=== PATIENT | female | born 1935 | race Caucasian/White ===

== ENCOUNTER 2023-09-28 14:40 | Emergency (ER) | payer MEDICARE, BC ==
[2023-09-28 15:48] LABS: BASOPHILS PERCENT AUTO 0.2 % (0.1-1.3); EOSINOPHILS ABSOLUTE AUTO 0.18 K/uL (0.00-0.40); EOSINOPHILS PERCENT AUTO 1.7 % (0.0-5.4); HEMATOCRIT 25.4 % (34.3-46.0); HEMOGLOBIN 8.4 g/dL (11.2-15.5); IMMATURE GRAN ABSOLUTE AUTO 0.05 K/uL (0.00-0.23); IMMATURE GRAN PERCENT AUTO 0.5 % (0.0-0.7); LYMPHOCYTES ABSOLUTE AUTO 1.14 K/uL (0.8-3.3); LYMPHOCYTES PERCENT AUTO 10.8 % (11.4-47.7); MEAN CORPUSCULAR HEMOGLOBIN 28.9 pg (31.6-35.5); MEAN CORPUSCULAR HGB CONC 33.1 g/dL (31.6-35.5); MEAN CORPUSCULAR VOLUME 87.3 fL (81.4-99.0); MONOCYTES ABSOLUTE AUTO 1.06 K/uL (0.20-0.90); MONOCYTES PERCENT AUTO 10.1 % (3.3-12.6); NEUTROPHILS ABSOLUTE AUTO 8.09 K/uL (1.0-7.6); NEUTROPHILS PERCENT AUTO 76.7 % (40.0-78.1); PLATELET COUNT,PLT 374 K/uL (130-375); RED BLOOD CELL COUNT 2.91 M/uL (3.77-5.24); WHITE BLOOD CELL COUNT,WBC 10.5 K/uL (3.2-11.0)
[2023-09-28 15:53] LABS: BASOPHILS ABSOLUTE AUTO 0.02 K/uL (0.00-0.10)
[2023-09-28 16:14] LABS: PROTHROMBIN TIME 10.3 sec (9.2-10.6); PTT,PARTIAL THROMBOPLSTIN TIME 25.3 sec (21.8-27.3)
[2023-09-28 16:21] LABS: ANION GAP 12.4 mmol/L (5.0-14.0); CALCIUM 8.6 mg/dL (8.5-10.1); CREATININE 1.2 mg/dL (0.6-1.0); EST CRCL DRUG DOSING (CG) 23.28 mL/min; MAGNESIUM 1.4 mg/dL (1.8-2.4); POTASSIUM,K 4.4 mmol/L (3.6-5.2); TROPONIN I HIGH SENSITIVITY 3124.9 pg/mL (<=60.3)
[2023-09-28] MEDS ORDERED: Heparin Sodium/D5W 25,000 UNITS/500 ML BAG IV SCH (16:30)
[2023-09-28] MEDS: Aspirin 81 MG Tab.Chew PO ONE (16:53)
[2023-09-28] MEDS: Ticagrelor 90 MG Tab PO ONE (16:53)
[2023-09-28] MEDS: Heparin Sodium 5,000 Units/ML Vial IVPUSH ONE (16:54)
[2023-09-28] MEDS: Heparin Sodium/D5W 25,000 UNITS/500 ML BAG IV SCH (16:56)
[2023-09-28] MEDS: Furosemide 20 MG/2 ML VIAL IVPUSH ONE (17:00)
== END 2023-09-28 18:50 ==
LOC: JP.ED 14:40
DX: I21.4 Non-ST elevation (NSTEMI) myocardial infarction (principal); E11.9 Type 2 diabetes mellitus without complications; E03.9 Hypothyroidism, unspecified; E78.00 Pure hypercholesterolemia, unspecified; I11.0 Hypertensive heart disease with heart failure; I50.9 Heart failure, unspecified; Z79.84 Long term (current) use of oral hypoglycemic drugs; Z79.899 Other long term (current) drug therapy
CPT/HCPCS: 36415; 71046; 80048; 83735; 83880; 84484; 85025; 85610; 85730; 93010; 96365; 96366; 96375; 99285; A9270; J1644; J1940

== ENCOUNTER 2023-10-04 15:15 | Observation (INO) | payer MEDICARE, BC ==
[2023-10-04 16:09] LABS: BASOPHILS PERCENT AUTO 0.2 % (0.1-1.3); EOSINOPHILS ABSOLUTE AUTO 0.21 K/uL (0.00-0.40); HEMATOCRIT 20.2 % (34.3-46.0); IMMATURE GRAN ABSOLUTE AUTO 0.05 K/uL (0.00-0.23); IMMATURE GRAN PERCENT AUTO 0.5 % (0.0-0.7); LYMPHOCYTES ABSOLUTE AUTO 1.31 K/uL (0.8-3.3); LYMPHOCYTES PERCENT AUTO 12.2 % (11.4-47.7); MEAN CORPUSCULAR HEMOGLOBIN 29.3 pg (31.6-35.5); MEAN CORPUSCULAR HGB CONC 32.7 g/dL (31.6-35.5); MEAN CORPUSCULAR VOLUME 89.8 fL (81.4-99.0); MONOCYTES ABSOLUTE AUTO 1.19 K/uL (0.20-0.90); MONOCYTES PERCENT AUTO 11.1 % (3.3-12.6); NEUTROPHILS ABSOLUTE AUTO 7.95 K/uL (1.0-7.6); PLATELET COUNT,PLT 368 K/uL (130-375); RED BLOOD CELL COUNT 2.25 M/uL (3.77-5.24); WHITE BLOOD CELL COUNT,WBC 10.7 K/uL (3.2-11.0)
[2023-10-04 16:13] LABS: BASOPHILS ABSOLUTE AUTO 0.02 K/uL (0.00-0.10); HEMOGLOBIN 6.6 g/dL (11.2-15.5)
[2023-10-04 16:27] LABS: BILIRUBIN,URINE NEGATIVE (NEGATIVE); COLOR,URINE YELLOW (YELLOW); GLUCOSE,URINE NEGATIVE (NEGATIVE); KETONES,URINE NEGATIVE (NEGATIVE); LEUKOCYTE ESTERASE,URINE MODERATE (NEGATIVE); NITRITE,URINE NEGATIVE (NEGATIVE); OCCULT BLOOD,URINE NEGATIVE (NEGATIVE); PH,URINE 5.5 (5.0-8.0); PROTEIN,URINE 30 mg/dL (NEGATIVE); UROBILINOGEN,URINE 0.2 EU/dL (0.2-1.0)
[2023-10-04 16:33] LABS: A/G RATIO 0.8 (1.2-2.2); ALANINE AMINOTRANSFERASE,ALT 21 U/L (12-78); ALBUMIN 2.8 g/dL (3.4-5.0); ALKALINE PHOSPHATASE 72 U/L (46-116); ASPARTATE AMNIOTRANSFERASE,AST 26 U/L (15-37); BILIRUBIN TOTAL 0.3 mg/dL (0.2-1.0); BLOOD UREA NITROGEN,BUN 30 mg/dL (7-18); CALCIUM 8.7 mg/dL (8.5-10.1); CARBON DIOXIDE,CO2 20 mmol/L (21-32); CHLORIDE,CL 96 mmol/L (100-108); CREATININE 1.4 mg/dL (0.6-1.0); EST CRCL DRUG DOSING (CG) 19.95 mL/min; ESTIMATED GFR 36 mL/min (>60); GLUCOSE RANDOM 131 mg/dL (74-106); POTASSIUM,K 4.9 mmol/L (3.6-5.2); PROTEIN TOTAL,TP 6.5 g/dL (6.4-8.2); PROTHROMBIN TIME 10.2 sec (9.2-10.6); PTT,PARTIAL THROMBOPLSTIN TIME 23.3 sec (21.8-27.3); SODIUM,NA 128 mmol/L (140-148)
[2023-10-04 16:35] LABS: ANION GAP 16.9 mmol/L (5.0-14.0)
[2023-10-04 16:38] LABS: AMORPHOUS SEDIMENT,URINE NOT SEEN; APPEARANCE,URINE SLIGHTLY CLOUDY (CLEAR); BACTERIA,URINE MODERATE; EPITHELIAL CELLS,URINE FEW; MUCUS,URINE FEW; RBC,URINE 0-5 (0-5); WBC,URINE 20-30 (0-5)
[2023-10-04] MEDS: Sodium Chloride 0.9% 1,000 ML IV SCH (16:40)
[2023-10-04] MEDS: Sodium Chloride 0.9% 10 ML Syringe FLUSH PRN (16:56)
[2023-10-04 18:17] LABS: CORONAVIRUS COVID-19 NAA NEGATIVE (NEGATIVE); INFLUENZA A NAA NEGATIVE (NEGATIVE); INFLUENZA B NAA NEGATIVE (NEGATIVE); RESPIRATORY SYNCYTIAL VIR NAA NEGATIVE (NEGATIVE)
[2023-10-04] MEDS ORDERED: Acetaminophen 325 MG Tab PO PRN (19:18)
[2023-10-04] MEDS ORDERED: Gabapentin 100 MG Cap PO PRN (19:18)
[2023-10-04] MEDS ORDERED: oxyCODONE 5 MG Tab PO PRN (19:18)
[2023-10-04] MEDS ORDERED: Docusate Sodium 100 MG Cap PO PRN (19:18)
[2023-10-04] MEDS ORDERED: Ondansetron 4 MG Tab.DIS PO PRN (19:18)
[2023-10-04] MEDS ORDERED: Ondansetron 4 MG/2 ML SDV IV PRN (19:18)
[2023-10-04] MEDS: cefTRIAXone 1 GM in Sodium Chloride 0.9% 50 ML IV SCH (19:50)
[2023-10-04] MEDS: Sodium Chloride 0.9% 50 ML ONE (19:57)
[2023-10-04] MEDS ORDERED: Rosuvastatin 10 MG Tab PO SCH (21:00)
[2023-10-04] MEDS: diphenhydrAMINE 25 MG Cap PO SCH (22:33)
[2023-10-04] MEDS: Gabapentin 100 MG Cap PO SCH (22:34)
[2023-10-04] MEDS: Rosuvastatin 10 MG Tab PO SCH (22:37)
[2023-10-05 06:09] LABS: BASOPHILS ABSOLUTE AUTO 0.03 K/uL (0.00-0.10); BASOPHILS PERCENT AUTO 0.3 % (0.1-1.3); EOSINOPHILS ABSOLUTE AUTO 0.24 K/uL (0.00-0.40); EOSINOPHILS PERCENT AUTO 2.4 % (0.0-5.4); HEMATOCRIT 28.1 % (34.3-46.0); HEMOGLOBIN 9.5 g/dL (11.2-15.5); IMMATURE GRAN ABSOLUTE AUTO 0.06 K/uL (0.00-0.23); IMMATURE GRAN PERCENT AUTO 0.6 % (0.0-0.7); LYMPHOCYTES ABSOLUTE AUTO 1.09 K/uL (0.8-3.3); MEAN CORPUSCULAR HEMOGLOBIN 29.5 pg (31.6-35.5); MEAN CORPUSCULAR HGB CONC 33.8 g/dL (31.6-35.5); MEAN CORPUSCULAR VOLUME 87.3 fL (81.4-99.0); MONOCYTES ABSOLUTE AUTO 1.15 K/uL (0.20-0.90); MONOCYTES PERCENT AUTO 11.6 % (3.3-12.6); NEUTROPHILS ABSOLUTE AUTO 7.38 K/uL (1.0-7.6); NEUTROPHILS PERCENT AUTO 74.1 % (40.0-78.1); PLATELET COUNT,PLT 291 K/uL (130-375); RED BLOOD CELL COUNT 3.22 M/uL (3.77-5.24)
[2023-10-05 06:27] LABS: CALCIUM 8.3 mg/dL (8.5-10.1); CREATININE 1.2 mg/dL (0.6-1.0); EST CRCL DRUG DOSING (CG) 23.28 mL/min; POTASSIUM,K 4.9 mmol/L (3.6-5.2)
[2023-10-05 06:30] LABS: ANION GAP 13.9 mmol/L (5.0-14.0)
[2023-10-05] MEDS ORDERED: Losartan 50 MG Tab PO SCH (09:00)
[2023-10-05] MEDS ORDERED: metFORMIN 500 MG Tab PO SCH (09:00)
[2023-10-05] MEDS: Levothyroxine 50 MCG Tab PO SCH (10:25)
[2023-10-05] MEDS: Magnesium Oxide 400 MG Tab PO SCH (11:25)
[2023-10-05] MEDS: Aspirin 81 MG Tab.EC PO SCH (11:25)
[2023-10-05] MEDS: Losartan 25 MG Tab PO SCH (11:25)
[2023-10-05] MEDS: Clopidogrel 75 MG Tab PO SCH (11:25)
[2023-10-05] MEDS: Metoprolol Succinate 25 MG Tab.ER PO SCH (11:26)
== END 2023-10-05 12:51 | disposition home or self-care (01) ==
LOC: JP.ED 15:15 → JP.MS 18:28
PROVIDERS: ADMIT Internal Medicine; ATTEND Internal Medicine
DX: D64.9 Anemia, unspecified (principal); I25.2 Old myocardial infarction; N30.00 Acute cystitis without hematuria; E11.9 Type 2 diabetes mellitus without complications; E03.9 Hypothyroidism, unspecified; E78.00 Pure hypercholesterolemia, unspecified; Z20.822 Contact with and (suspected) exposure to COVID-19; Z95.5 Presence of coronary angioplasty implant and graft; Z79.82 Long term (current) use of aspirin; Z79.890 Hormone replacement therapy; Z79.84 Long term (current) use of oral hypoglycemic drugs; Z79.02 Long term (current) use of antithrombotics/antiplatelets; Z79.899 Other long term (current) drug therapy
CPT/HCPCS: 0241U; 36415; 36430; 80048; 80053; 81001; 82272; 82947; 85025; 85610; 85730; 86850; 86900; 86901; 86920; 86922; 87086; 87088; 87186; 96360; 96361; 96365; 99222; 99238; 99284; 99285-25; A9270-GY; G0378; J0696; J3490; J7030; P9016

== ENCOUNTER 2023-11-29 14:25 | Inpatient (IN) | payer MEDICARE, BC ==
[2023-11-29 19:17] LABS: CORONAVIRUS COVID-19 NAA NEGATIVE (NEGATIVE); INFLUENZA A NAA NEGATIVE (NEGATIVE); INFLUENZA B NAA NEGATIVE (NEGATIVE); RESPIRATORY SYNCYTIAL VIR NAA NEGATIVE (NEGATIVE)
[2023-11-29] MEDS ORDERED: Sennosides/Docusate Sodium 50-8.6 MG Tab PO PRN (19:17)
[2023-11-29] MEDS ORDERED: Ondansetron 4 MG/2 ML SDV IV PRN (19:17)
[2023-11-29] MEDS ORDERED: Ondansetron 4 MG Tab.DIS PO PRN (19:17)
[2023-11-29] MEDS ORDERED: Acetaminophen 325 MG Tab PO PRN (19:17)
[2023-11-29] MEDS ORDERED: Melatonin 3 MG Tab PO PRN (19:17)
[2023-11-29] MEDS ORDERED: Magnesium Hydroxide 400 MG/5 ML Susp 30 ML Cup PO PRN (19:17)
[2023-11-29] MEDS: Gabapentin 100 MG Cap PO SCH (20:27)
[2023-11-29] MEDS: Lactobacillus Rhamnosus GG (Probiotic) Cap PO SCH (20:27)
[2023-11-29] MEDS: Ciprofloxacin 500 MG Tab PO SCH (20:28)
[2023-11-29] MEDS: Rosuvastatin 10 MG Tab PO SCH (20:31)
[2023-11-29] MEDS: Metoprolol Succinate 25 MG Tab.ER PO SCH (20:34)
[2023-11-30] MEDS: Sodium Chloride 0.9% 1,000 ML IV SCH (02:30)
[2023-11-30 05:41] LABS: MEAN CORPUSCULAR HEMOGLOBIN 30.3 pg (31.6-35.5); MEAN CORPUSCULAR HGB CONC 34.5 g/dL (31.6-35.5); MEAN CORPUSCULAR VOLUME 87.9 fL (81.4-99.0); RED BLOOD CELL COUNT 3.3 M/uL (3.77-5.24); WHITE BLOOD CELL COUNT,WBC 10.3 K/uL (3.2-11.0)
[2023-11-30 05:55] LABS: C-REACTIVE PROTEIN 4.37 mg/dL (<0.50); CALCIUM 8.5 mg/dL (8.5-10.1); CREATININE 1.5 mg/dL (0.6-1.0); EST CRCL DRUG DOSING (CG) 18.62 mL/min; POTASSIUM,K 4.7 mmol/L (3.6-5.2)
[2023-11-30 05:57] LABS: ANION GAP 12.7 mmol/L (5.0-14.0)
[2023-11-30] MEDS: Clopidogrel 75 MG Tab PO SCH (09:00)
[2023-11-30] MEDS ORDERED: Metoprolol Succinate 25 MG Tab.ER PO SCH (09:00)
[2023-11-30] MEDS: Aspirin 81 MG Tab.EC PO SCH (09:00)
[2023-11-30] MEDS: Levothyroxine 50 MCG Tab PO SCH (09:01)
[2023-11-30] MEDS: Nystatin Susp 100,000 Unit/ML 5 ML UD Cup PO SCH (12:44)
== END 2023-11-30 13:30 | disposition home or self-care (01) | DRG 812 ==
LOC: JP.ED 14:25 → JP.MS 18:10
PROVIDERS: ADMIT Internal Medicine; ATTEND Internal Medicine
PROC: 30233N1 Transfusion of Nonautologous Red Blood Cells into Peripheral Vein, Percutaneous Approach (ICD-10-PCS; principal; 2023-11-29)
DX: D64.9 Anemia, unspecified (principal); D62 Acute posthemorrhagic anemia; N17.9 Acute kidney failure, unspecified; E87.1 Hypo-osmolality and hyponatremia; N30.00 Acute cystitis without hematuria; N12 Tubulo-interstitial nephritis, not specified as acute or chronic; C18.9 Malignant neoplasm of colon, unspecified; I10 Essential (primary) hypertension; H54.7 Unspecified visual loss; E78.00 Pure hypercholesterolemia, unspecified; M54.9 Dorsalgia, unspecified; G89.29 Other chronic pain; E11.9 Type 2 diabetes mellitus without complications; E03.9 Hypothyroidism, unspecified; E87.5 Hyperkalemia; I25.10 Atherosclerotic heart disease of native coronary artery without angina pectoris; K63.89 Other specified diseases of intestine; Z79.899 Other long term (current) drug therapy; Z95.5 Presence of coronary angioplasty implant and graft; I25.2 Old myocardial infarction; Z87.19 Personal history of other diseases of the digestive system; Z79.84 Long term (current) use of oral hypoglycemic drugs; Z79.02 Long term (current) use of antithrombotics/antiplatelets; Z79.82 Long term (current) use of aspirin; Z98.49 Cataract extraction status, unspecified eye; Z90.49 Acquired absence of other specified parts of digestive tract; Z90.710 Acquired absence of both cervix and uterus; Z98.890 Other specified postprocedural states
CPT/HCPCS: 0241U; 36415; 36430; 74176; 80048; 85027; 86140; 86850; 86900; 86901; 86920; 86922; 99223; 99239; 99284; 99285; A9270-GY; J7030; P9016

== ENCOUNTER 2024-01-08 10:41 | Observation (INO) | payer MEDICARE, BC ==
[2024-01-08 11:57] LABS: BASOPHILS ABSOLUTE AUTO 0.04 K/uL (0.00-0.10); BASOPHILS PERCENT AUTO 0.2 % (0.1-1.3); HEMATOCRIT 27.1 % (34.3-46.0); HEMOGLOBIN 9.3 g/dL (11.2-15.5); IMMATURE GRAN ABSOLUTE AUTO 0.15 K/uL (0.00-0.23); IMMATURE GRAN PERCENT AUTO 0.6 % (0.0-0.7); LYMPHOCYTES ABSOLUTE AUTO 0.21 K/uL (0.8-3.3); LYMPHOCYTES PERCENT AUTO 0.8 % (11.4-47.7); MEAN CORPUSCULAR HEMOGLOBIN 30.5 pg (31.6-35.5); MEAN CORPUSCULAR HGB CONC 34.3 g/dL (31.6-35.5); MEAN CORPUSCULAR VOLUME 88.9 fL (81.4-99.0); MONOCYTES ABSOLUTE AUTO 0.33 K/uL (0.20-0.90); MONOCYTES PERCENT AUTO 1.3 % (3.3-12.6); NEUTROPHILS ABSOLUTE AUTO 24.88 K/uL (1.0-7.6); NEUTROPHILS PERCENT AUTO 97.1 % (40.0-78.1); PLATELET COUNT,PLT 334 K/uL (130-375); RED BLOOD CELL COUNT 3.05 M/uL (3.77-5.24); WHITE BLOOD CELL COUNT,WBC 25.6 K/uL (3.2-11.0)
[2024-01-08] MEDS: Lactated Ringers 1,000 ML IV SCH (12:05)
[2024-01-08 12:18] LABS: A/G RATIO 0.7 (1.2-2.2); ALANINE AMINOTRANSFERASE,ALT 23 U/L (12-78); ALBUMIN 2.4 g/dL (3.4-5.0); ALKALINE PHOSPHATASE 91 U/L (46-116); ASPARTATE AMNIOTRANSFERASE,AST 19 U/L (15-37); BILIRUBIN TOTAL 0.4 mg/dL (0.2-1.0); BLOOD UREA NITROGEN,BUN 20 mg/dL (7-18); C-REACTIVE PROTEIN 4.29 mg/dL (<0.50); CALCIUM 8.4 mg/dL (8.5-10.1); CARBON DIOXIDE,CO2 25 mmol/L (21-32); CHLORIDE,CL 91 mmol/L (100-108); CREATININE 1.1 mg/dL (0.6-1.0); ESTIMATED GFR 48 mL/min (>60); GLUCOSE RANDOM 171 mg/dL (74-106); POTASSIUM,K 4.5 mmol/L (3.6-5.2); PROTEIN TOTAL,TP 5.8 g/dL (6.4-8.2); SODIUM,NA 124 mmol/L (140-148)
[2024-01-08 12:23] LABS: ANION GAP 12.5 mmol/L (5.0-14.0); LACTIC ACID 2.2 mmol/L (0.4-2.0)
[2024-01-08 12:34] LABS: CORONAVIRUS COVID-19 NAA NEGATIVE (NEGATIVE); INFLUENZA A NAA NEGATIVE (NEGATIVE); INFLUENZA B NAA NEGATIVE (NEGATIVE); RESPIRATORY SYNCYTIAL VIR NAA NEGATIVE (NEGATIVE)
[2024-01-08 14:15] LABS: APPEARANCE,URINE SLIGHTLY CLOUDY (CLEAR); BILIRUBIN,URINE NEGATIVE (NEGATIVE); COLOR,URINE YELLOW (YELLOW); GLUCOSE,URINE NEGATIVE (NEGATIVE); KETONES,URINE NEGATIVE (NEGATIVE); LEUKOCYTE ESTERASE,URINE SMALL (NEGATIVE); NITRITE,URINE NEGATIVE (NEGATIVE); OCCULT BLOOD,URINE MODERATE (NEGATIVE); PROTEIN,URINE NEGATIVE (NEGATIVE); UROBILINOGEN,URINE 0.2 EU/dL (0.2-1.0)
[2024-01-08 14:25] LABS: AMORPHOUS SEDIMENT,URINE NOT SEEN; BACTERIA,URINE MANY; EPITHELIAL CELLS,URINE MODERATE; MUCUS,URINE NOT SEEN; WBC,URINE 20-30 (0-5)
[2024-01-08] MEDS: cefTRIAXone 1 GM in Sodium Chloride 0.9% 50 ML IV ONE (15:14)
[2024-01-08] MEDS ORDERED: Ondansetron 4 MG/2 ML SDV IV PRN (16:46)
[2024-01-08] MEDS ORDERED: Ondansetron 4 MG Tab.DIS PO PRN (16:46)
[2024-01-08] MEDS ORDERED: Magnesium Hydroxide 400 MG/5 ML Susp 30 ML Cup PO PRN (16:46)
[2024-01-08] MEDS ORDERED: Sennosides/Docusate Sodium 50-8.6 MG Tab PO PRN (16:46)
[2024-01-08] MEDS: Gabapentin 100 MG **PTOM PO SCH (20:48)
[2024-01-08] MEDS: Lactobacillus Rhamnosus GG (Probiotic) Cap PO SCH (20:48)
[2024-01-08] MEDS: ROSUVASTATIN 20 MG PO SCH (20:49)
[2024-01-08] MEDS: Metoprolol Succinate 25 MG Tab.ER **OWN MED PO SCH (20:50)
[2024-01-08] MEDS ORDERED: Rosuvastatin 10 MG Tab PO SCH (21:00)
[2024-01-08] MEDS ORDERED: Metoprolol Succinate 25 MG Tab.ER PO SCH (21:00)
[2024-01-08] MEDS ORDERED: Non-Formulary Medication 1 Each (Metoprolol Succinate [Toprol Xl] 25 MG Tab.Er) PO SCH (21:00)
[2024-01-08] MEDS ORDERED: Non-Formulary Medication 1 Each (Rosuvastatin [Crestor] 10 MG Tablet) PO SCH (21:00)
[2024-01-08] MEDS ORDERED: Gabapentin 100 MG Cap PO SCH (21:00)
[2024-01-08] MEDS ORDERED: Non-Formulary Medication 1 Each (Gabapentin [Neurontin] 100 MG Cap) PO SCH (21:00)
[2024-01-08] MEDS: Acetaminophen 325 MG Tab PO PRN (21:11)
[2024-01-09 05:08] LABS: HEMATOCRIT 23.9 % (34.3-46.0); HEMOGLOBIN 8.1 g/dL (11.2-15.5); MEAN CORPUSCULAR HEMOGLOBIN 30.2 pg (31.6-35.5); MEAN CORPUSCULAR HGB CONC 33.9 g/dL (31.6-35.5); MEAN CORPUSCULAR VOLUME 89.2 fL (81.4-99.0); RED BLOOD CELL COUNT 2.68 M/uL (3.77-5.24); WHITE BLOOD CELL COUNT,WBC 18.2 K/uL (3.2-11.0)
[2024-01-09 05:25] LABS: CALCIUM 8.2 mg/dL (8.5-10.1); CREATININE 1.1 mg/dL (0.6-1.0); EST CRCL DRUG DOSING (CG) 24.9 mL/min; POTASSIUM,K 4.2 mmol/L (3.6-5.2)
[2024-01-09 05:28] LABS: ANION GAP 6.2 mmol/L (5.0-14.0)
[2024-01-09] MEDS: Levothyroxine 50 MCG Tab PO SCH (07:01)
[2024-01-09] MEDS: cefTRIAXone 2 GM in Sodium Chloride 0.9% 50 ML IV SCH (08:45)
[2024-01-09] MEDS: METFORMIN 500 MG PO SCH (08:53)
[2024-01-09] MEDS: FERROUS FUMARATE PO SCH (08:54)
[2024-01-09] MEDS: [UNRECOGNIZED DRUG - OTHER] PO SCH (08:54)
[2024-01-09] MEDS: Losartan 25 MG **PTOM PO SCH (08:55)
[2024-01-09] MEDS: Aspirin 81 MG Tab.EC **PTOM PO SCH (08:55)
[2024-01-09] MEDS: MAGNESIUM CHLORIDE 64 MG PO SCH (08:56)
[2024-01-09] MEDS: Clopidogrel 75 MG **PTOM PO SCH (08:56)
[2024-01-09] MEDS ORDERED: CLOPIDOGREL 75 MG PO SCH (09:00)
[2024-01-09] MEDS ORDERED: Non-Formulary Medication 1 Each (Ferrous Fumarate/Vitamin C [Vitron-C] 1 TAB Tablet) PO SCH (09:00)
[2024-01-09] MEDS ORDERED: Non-Formulary Medication 1 Each (Levothyroxine [Synthroid] 50 MCG Tablet) PO SCH (09:00)
[2024-01-09] MEDS ORDERED: Non-Formulary Medication 1 Each (Aspirin [Halfprin] 81 MG Tab.Ec) PO SCH (09:00)
[2024-01-09] MEDS ORDERED: Non-Formulary Medication 1 Each (Losartan [Cozaar] 50 MG Tablet) PO SCH (09:00)
[2024-01-09] MEDS ORDERED: ROSUVASTATIN 20 MG PO SCH (21:00)
[2024-01-10] MEDS ORDERED: Levothyroxine 50 MCG **PTOM PO SCH (07:30)
== END 2024-01-09 12:36 | disposition home or self-care (01) ==
LOC: JP.ED 10:41 → JP.MS 15:35
PROVIDERS: ADMIT Internal Medicine; ATTEND Internal Medicine
DX: N30.00 Acute cystitis without hematuria (principal); E87.1 Hypo-osmolality and hyponatremia; D64.9 Anemia, unspecified; E11.9 Type 2 diabetes mellitus without complications; K63.89 Other specified diseases of intestine; I10 Essential (primary) hypertension; E03.9 Hypothyroidism, unspecified; I25.10 Atherosclerotic heart disease of native coronary artery without angina pectoris; Z79.890 Hormone replacement therapy; Z79.84 Long term (current) use of oral hypoglycemic drugs; Z79.82 Long term (current) use of aspirin; Z79.899 Other long term (current) drug therapy
CPT/HCPCS: 0241U; 36415; 80048; 80053; 81001; 83605; 84145; 85025; 85027; 86140; 87040; 87086; 87088; 87186; 96361; 96365; 96376; 99222; 99238; 99284-25; A9270-GY; G0378; J0696; J3490; J7120